=== PATIENT | female | born 1970 | race Caucasian/White ===

== ENCOUNTER → 2017-01-03 | Outpatient (CLI) | payer MEDICARE | LOC: MAMMO 15:05 | DX: Z12.31 Encounter for screening mammogram for malignant neoplasm of breast (principal) | CPT/HCPCS: G0202 ==

== ENCOUNTER → 2019-03-27 | Outpatient (CLI) | payer MEDICARE | LOC: MAMMO 12:44 | DX: Z12.31 Encounter for screening mammogram for malignant neoplasm of breast (principal) ==